=== PATIENT | female | born 1995 | race Caucasian/White ===

== ENCOUNTER 2016-11-11 23:27 | Observation (INO) | payer OTHER ==
[2016-11-12 00:49] LABS: AMORPHOUS SEDIMENT,URINE TRACE /HPF; APPEARANCE,URINE CLEAR; BILIRUBIN,URINE NEGATIVE (NEGATIVE); GLUCOSE, URINE NEGATIVE (NEGATIVE); KETONES,URINE NEGATIVE (NEGATIVE); LEUKOCYTE ESTERASE,URINE TRACE (NEGATIVE); NITRITE,URINE NEGATIVE (NEGATIVE); PROTEIN,URINE NEGATIVE (NEGATIVE); UROBILINOGEN,URINE NEGATIVE mg/dL (<2.0)
[2016-11-12 01:14] LABS: ABSOLUTE EOSINOPHILS # (AUTO) 0.1 10^3/uL (0.0-0.6); ABSOLUTE LYMPHOCYTES (AUTO) 1.9 10^3/uL (0.5-4.7); ABSOLUTE MONOCYTES (AUTO) 0.5 10^3/uL (0.1-1.4); BASOPHILS % (AUTO) 0.4 % (0-2); EOSINOPHILS % (AUTO) 1.6 % (0-6); HEMATOCRIT 35.2 % (36.0-47.0); HEMOGLOBIN 12.2 g/dL (12.0-15.5); HGB HCT DIFFERENCE 1.4; LYMPHOCYTES % (AUTO) 22.5 % (13-45); MEAN CORPUSCULAR HEMOGLOBIN 31.8 pg (27.0-33.4); MEAN CORPUSCULAR HGB CONC 34.7 g/dL (32.0-36.0); MEAN CORPUSCULAR VOLUME 92 fl (80-97); MONOCYTES % (AUTO) 6.2 % (3-13); RED BLOOD COUNT 3.85 10^6/uL (3.72-5.28); RED CELL DISTRIBUTION WIDTH 12.6 % (11.5-14.0); SEGMENTED NEUTROPHILS % (AUTO) 69.3 % (42-78); WHITE BLOOD COUNT 8.6 10^3/uL (4.0-10.5)
[2016-11-12 01:53] LABS: ALANINE AMINOTRANSFERASE 35 U/L (5-35); ALBUMIN 3.9 g/dL (3.7-5.6); ALKALINE PHOSPHATASE 81 U/L (50-135); ANION GAP 12 (5-19); ASPARTATE AMINO TRANSFERASE 19 U/L (5-30); BILIRUBIN,DIRECT 0.3 mg/dL (0.0-0.4); BILIRUBIN,TOTAL 0.4 mg/dL (0.2-1.3); BLOOD UREA NITROGEN 10 mg/dL (7-20); CARBON DIOXIDE 24 mmol/L (22-30); CHLORIDE 107 mmol/L (98-107); CREATININE RESULT 0.59 mg/dL (0.52-1.25); GLUCOSE 110 mg/dL (75-110); LIPASE 44.7 U/L (23-300); POTASSIUM 4.4 mmol/L (3.6-5.0); SODIUM 143.1 mmol/L (137-145); TOTAL PROTEIN 7.1 g/dL (6.3-8.2)
[2016-11-12] MEDS ORDERED: ONDANSETRON HCL INJ/PF 4 MG/2 ML SDV IV ONE (02:58)
[2016-11-12] MEDS ORDERED: HYDROMORPHONE HCL INJ/PF 2 MG/ML AMPULE IV ONE (02:59)
--- NOTE | 2016-11-12 03:33 | ER Document Report ---
ED General - General Chief Complaint: Abdominal Pain Stated Complaint: LEFT FLANK PAIN Time seen by provider: 02:48 Mode of Arrival: Ambulatory Information source: Patient, Parent TRAVEL OUTSIDE OF THE [place] IN LAST 30 DAYS: No - HPI Notes: Patient presents that last week she had a small area of skin infection on the back of the left leg which improved after antibiotics. The patient denies any significant swelling otherwise to the leg. She states that 4 days ago she developed sudden left sided chest pain that was pleuritic and has intensified and worsened since that time. She feels somewhat short of breath but mainly describes a worsening pain through the left chest associated with taking a deep breath. The pain is somewhat worse when she lays down. She denies any trauma to the region. She does report some radiation of the pain to the left arm. Patient is on control pills, but does not smoke. No recent long distance travel. Patient denies any cough, constipation, diarrhea, dysuria, numbness, paresthesia. She has been taking ibuprofen regularly without significant improvement. Family history grandmother with DVTs. - Related Data Allergies/Adverse Reactions: No Known Allergies Allergy (Unverified 11/12/16 00:03) Home Medications: Current Home Medications Cephalexin Monohydrate [Cephalexin] 1 cap PO Q8H 11/12/16 [History] Desogestrel-Ethinyl Estradiol [Reclipsen 28 Day Tablet] 1 tab PO DAILY 11/12/16 [History] Past Medical History - General Information source: Patient, Parent - Social History Smoking Status: Never Smoker Cigarette use (# per day): No Chew tobacco use (# tins/day): No Smoking Education Provided: No Frequency of alcohol use: None Drug Abuse: None Lives with: Family Family History: Other - grandmother with DVT's Patient has suicidal ideation: No Patient has homicidal ideation: No Renal/ Medical History: Denies: Hx Peritoneal Dialysis - Immunizations Hx Diphtheria, Pertussis, Tetanus Vaccination: Yes Review of Systems - Review of Systems Notes: REVIEW OF SYSTEMS: CONSTITUTIONAL : Denies fever, chills, or sweats. EENT: Denies eye, ear, throat, or mouth pain or symptoms. Denies nasal or sinus congestion or discharge. Denies throat, tongue, or mouth swelling or difficulty swallowing. CARDIOVASCULAR: Denies palpitations or racing or irregular heart beat. Denies ankle edema. RESPIRATORY: Denies cough, cold, or chest congestion. Denies wheezing. GASTROINTESTINAL: Denies abdominal pain or distention. Denies nausea, vomiting , or diarrhea. Denies blood in vomitus, stools, or per rectum. Denies black, tarry stools. Denies constipation. GENITOURINARY: Denies difficulty urinating, painful urination, burning, frequency, blood in urine, or discharge. FEMALE GENITOURINARY: Denies vaginal bleeding, heavy or abnormal periods, irregular periods. Denies vaginal discharge or odor. MUSCULOSKELETAL: Denies neck pain or stiffness. Denies joint pain or swelling. SKIN: Left posterior skin cellulitis is improving. HEMATOLOGIC : Denies easy bruising or bleeding. LYMPHATIC: Denies swollen, enlarged glands. NEUROLOGICAL: Denies confusion or altered mental status. Denies passing out or loss of consciousness. Denies dizziness or lightheadedness. Denies headache. Denies weakness or paralysis or loss of use of either side. Denies problems with gait or speech. Denies sensory loss, numbness, or tingling. Denies seizures. PSYCHIATRIC: Denies anxiety or stress. Denies depression, suicidal ideation, or homicidal ideation. ALL OTHER SYSTEMS REVIEWED AND NEGATIVE. Dictation was performed using [employer] voice recognition software Physical Exam - Vital signs Vitals: Temp Pulse Resp BP Pulse Ox 97.7 F 98 H 18 137/80 H 100 11/12/16 00:04 11/12/16 00:04 11/12/16 00:04 11/12/16 00:04 11/12/16 00:04 - Notes Notes: PHYSICAL EXAMINATION: GENERAL: Well-appearing, well-nourished. Obvious discomfort noted. HEAD: Atraumatic, normocephalic. EYES: Pupils equal round and reactive to light, extraocular movements intact, conjunctiva are normal. ENT: Nares patent, oropharynx clear without exudates. Moist mucous membranes. NECK: Normal range of motion, supple without lymphadenopathy LUNGS: Breath sounds clear to auscultation bilaterally and equal. No wheezes rales or rhonchi. Patient has some pain to the left lateral rib cage region. There is no bony deformity or crepitance. HEART: Tachycardic rate 110 and rhythm without murmurs, gallop or rub. ABDOMEN: Soft, nontender, nondistended abdomen. No guarding, no rebound. No masses appreciated. Female : deferred Musculoskeletal: Normal range of motion, no pitting or edema. No cyanosis. Negative Homans. No palpable cord. NEUROLOGICAL: Cranial nerves grossly intact. Normal speech, normal gait. Normal sensory, motor exams PSYCH: Normal mood, normal affect. SKIN: Warm, Dry, normal turgor, no rashes or lesions noted. Area of what appears to be a resolving cellulitis posterior left thigh proximal to the knee. Good range of motion to the extremity without any evidence for septic arthritis. Distally there are good pulses and sensation and capillary refill. There is no obvious abscess. Course - Re-evaluation Re-evalutation: 11/12/16 05:03 After Zofran and Dilaudid, the patient reported improvement in her pain. Oxygen saturations remained 98-100% on room air. CT scan showed left pulmonary infarct with segmental pulmonary emboli. Discussion was undertaken with the patient and her father and they were in agreement with admission for further evaluation and care. Patient was given Lovenox subcutaneous. Discussion was undertaken with Dr. Syed Mornoy who agreed to admit the patient for further management. No evidence for hypoxia. No evidence for cardiac ischemia or acute AR or . Question lower extremity DVT with recent resolving infection left lower extremity. No evidence for pericarditis or pericardial effusion. Critical care time not counting billable procedures is 44 minutes. - Vital Signs Vital signs: Temp Pulse Resp BP Pulse Ox 97.7 F 98 H 11 L 131/78 H 91 L 11/12/16 00:04 11/12/16 00:04 11/12/16 04:48 11/12/16 04:48 11/12/16 04:48 - Laboratory Result Diagrams: 11/12/16 01:04 11/12/16 01:04 Laboratory results interpreted by me: 11/12/16 11/12/16 00:15 01:04 Hct 35.2 L Ur Leukocyte Esterase TRACE H - Diagnostic Test Radiology reviewed: Image reviewed, Reports reviewed - EKG Interpretation by Wy EKG shows normal: Sinus rhythm Rate: Tachycardia Additional EKG results interpreted by me: 11/12/16 03:33 EKG as interpreted by ky showed sinus tachycardia rate of 107. There is no gross evidence for acute AR or ischemia identified. There is no evidence for pericarditis. There is no old EKG available for comparison. Discharge - Discharge Clinical Impression: Chest pain Qualifiers: Chest pain type: chest pain on breathing Qualified Code(s): R07.1 - Chest pain on breathing Pulmonary embolism Qualifiers: Pulmonary embolism type: other Chronicity: acute Acute cor pulmonale presence: without acute cor pulmonale Qualified Code(s): I26.99 - Other pulmonary embolism without acute cor pulmonale Condition: Stable Disposition: ADMITTED INPATIENT Unit Admitted: Telemetry
[2016-11-12 04:41] LABS: PROTHROMBIN TIME 13.7 SEC (11.4-15.4)
[2016-11-12] MEDS ORDERED: ONDANSETRON HCL INJ/PF 4 MG/2 ML SDV IV PRN (05:16)
[2016-11-12] MEDS: ENOXAPARIN SODIUM INJ 100 MG/1 ML DISP.SYRIN SUBCUT SCH ×2 (05:30→16:08)
[2016-11-12] MEDS ORDERED: NORMAL SALINE 1000 ML 1,000 ML IV SCH (05:30)
--- NOTE | 2016-11-12 05:55 | PDOC H&P ---
History of Present Illness Patient complains of: Chest pain History of Present Illness: EUGENIA GARCIA is a 20 year old female without significant past medical history who 5 days ago noted to have an area of folliculitis on the left leg behind the knee, she was treated with Keflex and had significant recovery denying lower extremity edema. 3 days ago she had severe left-sided pleuritic chest pain exacerbated by deep breathing prompting him to seek evaluation in the emergency room where she's found to have tachycardia and tachypnea with bilateral pulmonary emboli with small pulmonary infarct on chest CTA. She denies previous episode home medications include oral control and when necessary ibuprofen. Grandmother has history of DVTs on chronic Coumadin therapy Past Medical History Medical History: None Social History Information Source: Patient Lives with: Family Smoking Status: Never Smoker Drugs: None Hx Prescription Drug Abuse: No - Advance Directive Resuscitation Status: Full Code Family History Family History: Other - grandmother with DVT's Parental Family History Reviewed: Yes Children Family History Reviewed: Yes Sibling(s) Family History Reviewed.: Yes Medication/Allergy Home Medications: Cephalexin Monohydrate [Cephalexin] 1 cap PO Q8H 11/12/16 Desogestrel-Ethinyl Estradiol [Reclipsen 28 Day Tablet] 1 tab PO DAILY 11/12/16 Allergies/Adverse Reactions: No Known Allergies Allergy (Unverified 11/12/16 00:03) Review of Systems Constitutional: ABSENT: chills, fever(s), headache(s), weight gain, weight loss Eyes: ABSENT: visual disturbances Ears: ABSENT: hearing changes Cardiovascular: ABSENT: chest pain, dyspnea on exertion, edema, orthropnea, palpitations Respiratory: ABSENT: cough, hemoptysis Gastrointestinal: ABSENT: abdominal pain, constipation, diarrhea, hematemesis, hematochezia, nausea, vomiting Genitourinary: ABSENT: dysuria, hematuria Musculoskeletal: ABSENT: joint swelling Integumentary: ABSENT: rash, wounds Neurological: ABSENT: abnormal gait, abnormal speech, confusion, dizziness, focal weakness, syncope Psychiatric: ABSENT: anxiety, depression, homidical ideation, suicidal ideation Endocrine: ABSENT: cold intolerance, heat intolerance, polydipsia, polyuria Hematologic/Lymphatic: ABSENT: easy bleeding, easy bruising Physical Exam Vital Signs: Temp Pulse Resp BP Pulse Ox 97.7 F 98 H 11 L 131/78 H 91 L 11/12/16 00:04 11/12/16 00:04 11/12/16 04:48 11/12/16 04:48 11/12/16 04:48 Intake & Output 11/10/16 11/11/16 11/12/16 11:59 11:59 11:59 Weight 89.2 kg General appearance: PRESENT: cooperative, mild distress, obese Head exam: PRESENT: atraumatic, normocephalic Eye exam: PRESENT: conjunctiva pink, EOMI, PERRLA. ABSENT: scleral icterus Ear exam: PRESENT: normal external ear exam Mouth exam: PRESENT: moist, tongue midline Neck exam: ABSENT: carotid bruit, JVD, lymphadenopathy, thyromegaly Respiratory exam: PRESENT: clear to auscultation mayda, symmetrical, tachypnea, other - Shallow breathing. ABSENT: accessory muscle use, chest wall tenderness , crackles Cardiovascular exam: PRESENT: RRR. ABSENT: diastolic murmur, rubs, systolic murmur Pulses: PRESENT: normal dorsalis pedis pul GI/Abdominal exam: PRESENT: normal bowel sounds, soft. ABSENT: distended, guarding, mass, organolmegaly, rebound, tenderness Rectal exam: PRESENT: deferred Extremities exam: PRESENT: full ROM. ABSENT: calf tenderness, clubbing, pedal edema Neurological exam: PRESENT: alert, awake, oriented to person, oriented to place , oriented to time, oriented to situation, CN II-XII grossly intact. ABSENT: motor sensory deficit Psychiatric exam: PRESENT: appropriate affect, normal mood. ABSENT: homicidal ideation, suicidal ideation Skin exam: PRESENT: dry, intact, warm. ABSENT: cyanosis, rash Results Laboratory Results: 11/12/16 01:04 11/12/16 01:04 11/12/16 11/12/16 11/12/16 00:15 01:04 01:04 WBC 8.6 RBC 3.85 Hgb 12.2 Hct 35.2 L MCV 92 MCH 31.8 MCHC 34.7 RDW 12.6 Plt Count 183 Seg Neutrophils % 69.3 Lymphocytes % 22.5 Monocytes % 6.2 Eosinophils % 1.6 Basophils % 0.4 Absolute Neutrophils 6.0 Absolute Lymphocytes 1.9 Absolute Monocytes 0.5 Absolute Eosinophils 0.1 Absolute Basophils 0.0 Sodium 143.1 Potassium 4.4 Chloride 107 Carbon Dioxide 24 Anion Gap 12 BUN 10 Creatinine 0.59 Est GFR ( Amer) > 60 Est GFR (Non-Af Amer) > 60 Glucose 110 Calcium 9.0 Total Bilirubin 0.4 AST 19 ALT 35 Alkaline Phosphatase 81 Total Protein 7.1 Albumin 3.9 Lipase 44.7 Urine Color STRAW Urine Appearance CLEAR Urine pH 7.0 Ur Specific Gilliam 1.010 Urine Protein NEGATIVE Urine Glucose (UA) NEGATIVE Urine Ketones NEGATIVE Urine Blood NEGATIVE Urine Nitrite NEGATIVE Ur Leukocyte Esterase TRACE H Urine WBC (Auto) 1 11/12/16 01:04 Troponin I < 0.012 Impressions: Chest/Abdomen CTA 11/12/16 02:55 IMPRESSION: Acute bilateral pulmonary emboli. Pleural-based airspace opacities at the lingula and left lower lobe, probably representing pulmonary infarcts. Small left pleural effusion. Subsegmental atelectasis in the right lower lobe. Assessment & Plan - Diagnosis (1) Pulmonary embolism Qualifiers: Pulmonary embolism type: other Chronicity: acute Acute cor pulmonale presence: without acute cor pulmonale Qualified Code(s): I26.99 - Other pulmonary embolism without acute cor pulmonale Is this a current diagnosis for this admission?: YesPlan: Multiple risk factors for DVT I will evaluate for left lower extremity DVT with venous Doppler, symptomatic management, full dose Lovenox subcutaneous twice a day 7 days, discharge planning consultation for medication assistance follow- up a.m. CBC and chemistry (2) Chest pain Qualifiers: Chest pain type: chest pain on breathing Qualified Code(s): R07.1 - Chest pain on breathing - Time Time Spent: 30 to 50 Minutes - Inpatient Certification Medical Necessity: Need Close Monitoring Due to Risk of Patient Decompensation
[2016-11-12] MEDS: ACETAMINOPHEN 325 MG TABLET PO PRN ×2 (06:30→20:15)
--- NOTE | 2016-11-12 08:32 | PDOC CONSULTATION ---
Consultation Consult Date: 11/12/16 Attending physician:: MISSY KILGORE Consult reason:: Pulmonary embolism History of Present Illness Admission Date/PCP: 11/12/16 05:16 Patient complains of: Shortness breath, chest pain found to have PE History of Present Illness: 20-year-old female with no previous medical history who presents with acute onset of shortness of breath and chest pain, had CT of the chest done in the ED , was found to have bilateral pulmonary embolism. Of note, she had left lower extremity redness behind the thigh, there was what looked like a folliculitis or a bug bite, the leg was swollen for 3-4 days prior to seeing a physician in urgent care, she was started on Keflex on Saturday, but already by then she was having shortness of breath and chest pain which worsened and then she presented to the ED. The redness and the leg is gone down, looks much better than what it did before. Of note she has never had any thrombotic history, however she does have a maternal aunt who had DVT post gastric bypass, as well as maternal grandmother who had pulmonary embolism while she had pneumonia, both are on lifelong anticoagulation. Past Medical History Medical History: None Past Surgical History Past Surgical History: Reports: None Social History Lives with: Family Smoking Status: Never Smoker Drugs: None Hx Prescription Drug Abuse: No - Advance Directive Resuscitation Status: Full Code Family History Family History: Other - grandmother with DVT's Parental Family History Reviewed: Yes Children Family History Reviewed: Yes Sibling(s) Family History Reviewed.: Yes Medication/Allergy Home Medications: Cephalexin Monohydrate [Cephalexin] 1 cap PO Q8H 11/12/16 Desogestrel-Ethinyl Estradiol [Reclipsen 28 Day Tablet] 1 tab PO DAILY 11/12/16 Allergies/Adverse Reactions: No Known Allergies Allergy (Unverified 11/12/16 00:03) Review of Systems Constitutional: PRESENT: fatigue Cardiovascular: PRESENT: chest pain, dyspnea on exertion Gastrointestinal: ABSENT: abdominal pain, constipation, diarrhea, hematemesis, hematochezia, nausea, vomiting Neurological: ABSENT: abnormal gait, abnormal speech, confusion, dizziness, focal weakness, syncope Endocrine: ABSENT: cold intolerance, heat intolerance, polydipsia, polyuria Physical Exam Vital Signs: Temp Pulse Resp BP Pulse Ox 97.8 F 106 H 22 122/76 100 11/12/16 07:03 04/03/17 08:14 11/12/16 08:14 11/12/16 08:14 11/12/16 08:14 General appearance: PRESENT: no acute distress, well-developed, well-nourished Head exam: PRESENT: atraumatic, normocephalic Eye exam: PRESENT: conjunctiva pink, EOMI, PERRLA. ABSENT: scleral icterus Ear exam: PRESENT: normal external ear exam Mouth exam: PRESENT: moist, tongue midline Neck exam: ABSENT: carotid bruit, JVD, lymphadenopathy, thyromegaly Respiratory exam: PRESENT: clear to auscultation mayda. ABSENT: rales, rhonchi, wheezes Cardiovascular exam: PRESENT: RRR. ABSENT: diastolic murmur, rubs, systolic murmur Pulses: PRESENT: normal dorsalis pedis pul Vascular exam: PRESENT: normal capillary refill GI/Abdominal exam: PRESENT: normal bowel sounds, soft. ABSENT: distended, guarding, mass, organolmegaly, rebound, tenderness Rectal exam: PRESENT: deferred Extremities exam: PRESENT: full ROM. ABSENT: calf tenderness, clubbing, pedal edema Neurological exam: PRESENT: alert, awake, oriented to person, oriented to place , oriented to time, oriented to situation, CN II-XII grossly intact. ABSENT: motor sensory deficit Psychiatric exam: PRESENT: appropriate affect, normal mood. ABSENT: homicidal ideation, suicidal ideation Skin exam: PRESENT: dry, intact, warm. ABSENT: cyanosis, rash Results Impressions: Chest/Abdomen CTA 11/12/16 02:55 IMPRESSION: Acute bilateral pulmonary emboli. Pleural-based airspace opacities at the lingula and left lower lobe, probably representing pulmonary infarcts. Small left pleural effusion. Subsegmental atelectasis in the right lower lobe. Status: Image reviewed by me Assessment & Plan - Diagnosis (1) Pulmonary embolism Qualifiers: Pulmonary embolism type: other Chronicity: acute Acute cor pulmonale presence: without acute cor pulmonale Qualified Code(s): I26.99 - Other pulmonary embolism without acute cor pulmonale Is this a current diagnosis for this admission?: YesPlan: Patient with acute pulmonary embolism, she was on oral contraceptive, also had a lower extremity cellulitis, together may be enough for a provoking event, however for most this would not cause issues because she does not smoke. But she does have significant family history of thrombotic events. She may have a familial thrombophilia. We will test for that as an outpatient. For now continue on Lovenox for another 24 hours, we will then transition to Xarelto. - Time Time Spent: 50 to 70 Minutes Critical Time spent with patient: 25-34 minutes - Inpatient Certification Based on my medical assessment, after consideration of the patient's comorbidities, presenting symptoms, or acuity I expect that the services needed warrant INPATIENT care.: Yes I certify that my determination is in accordance with my understanding of Medicare's requirements for reasonable and necessary INPATIENT services [42 CFR 412.3e].: Yes Medical Necessity: Need For Continuous Telemetry Monitoring, Risk of Complication if Not Cared For in Hospital
[2016-11-12] MEDS: DOCUSATE SODIUM 100 MG CAPSULE PO SCH ×2 (10:38→17:01)
--- NOTE | 2016-11-12 12:51 | EKG REPORT ---
SEVERITY:- OTHERWISE NORMAL ECG - SINUS TACHYCARDIA : Confirmed by: Dahlia Alejandro MD 12-Nov-2016 12:51:06
--- NOTE | 2016-11-12 13:08 | PDOC PROGRESS REPORT ---
Subjective Progress Note for:: 11/12/16 Subjective:: The patient was seen earlier today on rounds. Mother is present at the bedside I given the patient's care. The patient denies any nausea, vomiting, diarrhea, shortness of breath, dizziness, chest pain, heart palpitations, fevers, or chills. The patient has remained afebrile. Blood pressures have been in a good range. When prompted the patient voices no other concerns at this time. Review of systems: The rest of the review of systems is negative. Physical Exam Vital Signs: Temp Pulse Resp BP Pulse Ox 98.0 F 95 H 16 123/74 99 11/12/16 09:28 11/12/16 09:28 11/12/16 09:28 11/12/16 09:28 11/12/16 09:28 Intake & Output 11/10/16 11/11/16 11/12/16 23:59 23:59 23:59 Weight 89.2 kg General appearance: PRESENT: no acute distress, cooperative, well-developed, well-nourished Head exam: PRESENT: atraumatic, normocephalic Eye exam: PRESENT: conjunctiva pink, EOMI, PERRLA. ABSENT: scleral icterus Ear exam: PRESENT: normal external ear exam Mouth exam: PRESENT: moist, tongue midline Neck exam: ABSENT: carotid bruit, JVD, lymphadenopathy, thyromegaly Respiratory exam: PRESENT: clear to auscultation mayda, symmetrical, unlabored. ABSENT: rales, rhonchi, tachypnea, wheezes Cardiovascular exam: PRESENT: RRR. ABSENT: diastolic murmur, rubs, systolic murmur Pulses: PRESENT: normal dorsalis pedis pul Vascular exam: PRESENT: normal capillary refill GI/Abdominal exam: PRESENT: normal bowel sounds, soft. ABSENT: distended, guarding, mass, organolmegaly, rebound, tenderness Rectal exam: PRESENT: deferred Extremities exam: PRESENT: full ROM. ABSENT: calf tenderness, clubbing, pedal edema Neurological exam: PRESENT: alert, awake, oriented to person, oriented to place , oriented to time, oriented to situation, CN II-XII grossly intact. ABSENT: motor sensory deficit Psychiatric exam: PRESENT: appropriate affect, normal mood. ABSENT: homicidal ideation, suicidal ideation Skin exam: PRESENT: dry, intact, warm. ABSENT: cyanosis, rash Results Laboratory Results: Labs- Last Values WBC 8.6 10^3/uL (4.0-10.5) 11/12/16 01:04 RBC 3.85 10^6/uL (3.72-5.28) 11/12/16 01:04 Hgb 12.2 g/dL (12.0-15.5) 11/12/16 01:04 Hct 35.2 % (36.0-47.0) L 11/12/16 01:04 MCV 92 fl (80-97) 11/12/16 01:04 MCH 31.8 pg (27.0-33.4) 11/12/16 01:04 MCHC 34.7 g/dL (32.0-36.0) 11/12/16 01:04 RDW 12.6 % (11.5-14.0) 11/12/16 01:04 Plt Count 183 10^3/uL (150-450) 11/12/16 01:04 Seg Neutrophils % 69.3 % (42-78) 11/12/16 01:04 Lymphocytes % 22.5 % (13-45) 11/12/16 01:04 Monocytes % 6.2 % (3-13) 11/12/16 01:04 Eosinophils % 1.6 % (0-6) 11/12/16 01:04 Basophils % 0.4 % (0-2) 11/12/16 01:04 Absolute Neutrophils 6.0 10^3/uL (1.7-8.2) 11/12/16 01:04 Absolute Lymphocytes 1.9 10^3/uL (0.5-4.7) 11/12/16 01:04 Absolute Monocytes 0.5 10^3/uL (0.1-1.4) 11/12/16 01:04 Absolute Eosinophils 0.1 10^3/uL (0.0-0.6) 11/12/16 01:04 Absolute Basophils 0.0 10^3/uL (0.0-0.2) 11/12/16 01:04 PT 13.7 SEC (11.4-15.4) 11/12/16 01:04 INR 1.02 11/12/16 01:04 Sodium 143.1 mmol/L (137-145) 11/12/16 01:04 Potassium 4.4 mmol/L (3.6-5.0) 11/12/16 01:04 Chloride 107 mmol/L (98-107) 11/12/16 01:04 Carbon Dioxide 24 mmol/L (22-30) 11/12/16 01:04 Anion Gap 12 (5-19) 11/12/16 01:04 BUN 10 mg/dL (7-20) 11/12/16 01:04 Creatinine 0.59 mg/dL (0.52-1.25) 11/12/16 01:04 Est GFR ( Amer) > 60 (>60) 11/12/16 01:04 Est GFR (Non-Af Amer) > 60 (>60) 11/12/16 01:04 Glucose 110 mg/dL (75-110) 11/12/16 01:04 Calcium 9.0 mg/dL (8.4-10.2) 11/12/16 01:04 Total Bilirubin 0.4 mg/dL (0.2-1.3) 11/12/16 01:04 Direct Bilirubin 0.3 mg/dL (0.0-0.4) 11/12/16 01:04 Indirect Bilirubin Not Reportable 11/12/16 01:04 Neonat Total Bilirubin Not Reportable 11/12/16 01:04 AST 19 U/L (5-30) 11/12/16 01:04 ALT 35 U/L (5-35) 11/12/16 01:04 Alkaline Phosphatase 81 U/L (50-135) 11/12/16 01:04 Troponin I < 0.012 ng/mL 11/12/16 01:04 Total Protein 7.1 g/dL (6.3-8.2) 11/12/16 01:04 Albumin 3.9 g/dL (3.7-5.6) 11/12/16 01:04 Lipase 44.7 U/L (23-300) 11/12/16 01:04 Urine Color STRAW 11/12/16 00:15 Urine Appearance CLEAR 11/12/16 00:15 Urine pH 7.0 (5.0-9.0) 11/12/16 00:15 Ur Specific Jerome 1.010 11/12/16 00:15 Urine Protein NEGATIVE mg/dL (NEGATIVE) 11/12/16 00:15 Urine Glucose (UA) NEGATIVE mg/dL (NEGATIVE) 11/12/16 00:15 Urine Ketones NEGATIVE mg/dL (NEGATIVE) 11/12/16 00:15 Urine Blood NEGATIVE (NEGATIVE) 11/12/16 00:15 Urine Nitrite NEGATIVE (NEGATIVE) 11/12/16 00:15 Urine Bilirubin NEGATIVE (NEGATIVE) 11/12/16 00:15 Urine Urobilinogen NEGATIVE mg/dL (<2.0) 11/12/16 00:15 Ur Leukocyte Esterase TRACE (NEGATIVE) H 11/12/16 00:15 Urine WBC (Auto) 1 /HPF 11/12/16 00:15 Urine Bacteria (Auto) TRACE /HPF 11/12/16 00:15 Squamous Epi Cells Auto 2 /HPF 11/12/16 00:15 Amorphous Sediment Auto TRACE /HPF 11/12/16 00:15 Urine Ascorbic Acid NEGATIVE (NEGATIVE) 11/12/16 00:15 Urine HCG, Qual NEGATIVE (NEGATIVE) 11/12/16 00:15 Impressions: Chest/Abdomen CTA 11/12/16 02:55 IMPRESSION: Acute bilateral pulmonary emboli. Pleural-based airspace opacities at the lingula and left lower lobe, probably representing pulmonary infarcts. Small left pleural effusion. Subsegmental atelectasis in the right lower lobe. Venous Doppler Study 11/12/16 08:24 IMPRESSION: NO EVIDENCE DVT OR SVT IN EITHER LEG. Assessment & Plan - Diagnosis (1) Pulmonary embolism Qualifiers: Pulmonary embolism type: other Chronicity: acute Acute cor pulmonale presence: without acute cor pulmonale Qualified Code(s): I26.99 - Other pulmonary embolism without acute cor pulmonale Is this a current diagnosis for this admission?: YesPlan: Will continue Lovenox coverage for now. The patient has been seen by hematology. Recommendations been made to start Xarelto tomorrow. Patient's symptoms overall. Improved. (2) Chest pain Qualifiers: Chest pain type: chest pain on breathing Qualified Code(s): R07.1 - Chest pain on breathing Is this a current diagnosis for this admission?: YesPlan: Resolved - Time Time Spent with patient: on this visit including assessment, plan, physical examination, family meeting, and specialty collaboration, and patient education is 35 minutes. Time Spent with patient: 35 or more minutes Medications reviewed and adjusted accordingly: Yes Anticipated discharge: Home Within: within 24 hours, within 48 hours
[2016-11-13] MEDS: ACETAMINOPHEN 325 MG TABLET PO PRN (01:59)
[2016-11-13] MEDS: ENOXAPARIN SODIUM INJ 100 MG/1 ML DISP.SYRIN SUBCUT SCH (05:10)
[2016-11-13 05:49] LABS: ANION GAP 13 (5-19); BLOOD UREA NITROGEN 7 mg/dL (7-20); CALCIUM 8.8 mg/dL (8.4-10.2); CARBON DIOXIDE 23 mmol/L (22-30); CHLORIDE 106 mmol/L (98-107); CREATININE RESULT 0.57 mg/dL (0.52-1.25); GLUCOSE 86 mg/dL (75-110); POTASSIUM 4.1 mmol/L (3.6-5.0); SODIUM 141.9 mmol/L (137-145)
--- NOTE | 2016-11-13 08:30 | PDOC PROGRESS REPORT ---
Subjective Progress Note for:: 11/13/16 Subjective:: Doing better today still with considerable pain Physical Exam Vital Signs: Temp Pulse Resp BP Pulse Ox 97.4 F 90 24 130/79 H 98 11/13/16 05:19 11/13/16 05:19 11/13/16 05:19 11/13/16 05:19 11/13/16 05:19 Intake & Output 11/12/16 11/13/16 11/14/16 06:59 06:59 06:59 Intake Total 2703 Output Total 950 Balance 1753 Weight 88 kg General appearance: PRESENT: no acute distress, well-developed, well-nourished Head exam: PRESENT: atraumatic, normocephalic Eye exam: PRESENT: conjunctiva pink, EOMI, PERRLA. ABSENT: scleral icterus Ear exam: PRESENT: normal external ear exam Mouth exam: PRESENT: moist, tongue midline Neck exam: ABSENT: carotid bruit, JVD, lymphadenopathy, thyromegaly Respiratory exam: PRESENT: clear to auscultation mayda. ABSENT: rales, rhonchi, wheezes Cardiovascular exam: PRESENT: RRR. ABSENT: diastolic murmur, rubs, systolic murmur Pulses: PRESENT: normal dorsalis pedis pul Vascular exam: PRESENT: normal capillary refill GI/Abdominal exam: PRESENT: normal bowel sounds, soft. ABSENT: distended, guarding, mass, organolmegaly, rebound, tenderness Rectal exam: PRESENT: deferred Extremities exam: PRESENT: full ROM. ABSENT: calf tenderness, clubbing, pedal edema Neurological exam: PRESENT: alert, awake, oriented to person, oriented to place , oriented to time, oriented to situation, CN II-XII grossly intact. ABSENT: motor sensory deficit Psychiatric exam: PRESENT: appropriate affect, normal mood. ABSENT: homicidal ideation, suicidal ideation Skin exam: PRESENT: dry, intact, warm. ABSENT: cyanosis, rash Results Laboratory Results: 11/13/16 05:12 11/13/16 05:12 Sodium 141.9 Potassium 4.1 Chloride 106 Carbon Dioxide 23 Anion Gap 13 BUN 7 Creatinine 0.57 Est GFR ( Amer) > 60 Est GFR (Non-Af Amer) > 60 Glucose 86 Calcium 8.8 Impressions: Chest/Abdomen CTA 11/12/16 02:55 IMPRESSION: Acute bilateral pulmonary emboli. Pleural-based airspace opacities at the lingula and left lower lobe, probably representing pulmonary infarcts. Small left pleural effusion. Subsegmental atelectasis in the right lower lobe. Venous Doppler Study 11/12/16 08:24 IMPRESSION: NO EVIDENCE DVT OR SVT IN EITHER LEG. Assessment & Plan - Diagnosis (1) Pulmonary embolism Qualifiers: Pulmonary embolism type: other Chronicity: acute Acute cor pulmonale presence: without acute cor pulmonale Qualified Code(s): I26.99 - Other pulmonary embolism without acute cor pulmonale Is this a current diagnosis for this admission?: YesPlan: Idiopathic at present, she will receive her Lovenox this morning and then probable discharge home and afternoon on Xarelto, 15 mg twice a day for 21 days then 20 mg daily. She'll also require some oral pain medication, also notes for work and school. She will see us back in 1-2 weeks post discharge. She'll remain off OCP until we decide to readd. - Time Time Spent with patient: 15-24 minutes Critical Time spent with patient: 15-24 minutes Anticipated discharge: Home Within: within 24 hours
[2016-11-13] MEDS: DOCUSATE SODIUM 100 MG CAPSULE PO SCH (10:05)
[2016-11-13 11:17] VITALS: BP 123/74
--- NOTE | 2016-11-13 17:33 | PDOC DISCHARGE SUMMARY ---
General - Admit/Disc Date/PCP Admission Date/Primary Care Provider: 11/12/16 05:16 Consulting oncologist: Megan Discharge Date: 11/13/16 - Discharge Diagnosis (1) Pulmonary embolism Is this a current diagnosis for this admission?: Yes (2) Chest pain Is this a current diagnosis for this admission?: Yes - Additional Information Resuscitation Status: Full Code Discharge Diet: Regular Discharge Activity: Activity As Tolerated Home Medications: Rivaroxaban [Xarelto 15 mg Tablet] 15 mg PO BID #42 tablet 11/13/16 Tramadol HCl [Ultram 50 mg Tablet] 50 mg PO Q4HP PRN #10 tab 11/13/16 History of Present Illness Patient complains of: Chest pain History of Present Illness: EUGENIA GARCIA is a 20 year old female without significant past medical history who 5 days ago noted to have an area of folliculitis on the left leg behind the knee, she was treated with Keflex and had significant recovery denying lower extremity edema. 3 days ago she had severe left-sided pleuritic chest pain exacerbated by deep breathing prompting him to seek evaluation in the emergency room where she's found to have tachycardia and tachypnea with bilateral pulmonary emboli with small pulmonary infarct on chest CTA. She denies previous episode home medications include oral control and when necessary ibuprofen. Grandmother has history of DVTs on chronic Coumadin therapy. Hospital Course Hospital Course: The patient was admitted to continuous telemetry unit. The patient's diagnostic imaging was consistent with bilateral PEs. The patient was covered with Lovenox. Dr. Guzman with hematology was consult did recommendations were made to hold contraception and transition to Xarelto. I called the patient Xarelto prescriptions in myself to ensure that her insurance cover these. The patient registered for patient co-pay assistance. The patient is able to ambulate without issue and is ready for discharge Physical Exam Vital Signs: Temp Pulse Resp BP Pulse Ox 98.7 F 89 18 123/74 98 11/13/16 11:14 11/13/16 11:14 11/13/16 11:14 11/13/16 11:14 11/13/16 11:14 Intake & Output 11/11/16 11/12/16 11/13/16 23:59 23:59 23:59 Intake Total 1500 1203 Output Total 950 Balance 1500 253 Weight 89.2 kg 88 kg General appearance: PRESENT: no acute distress, cooperative, well-developed, well-nourished Head exam: PRESENT: atraumatic, normocephalic Eye exam: PRESENT: conjunctiva pink, EOMI, PERRLA. ABSENT: scleral icterus Ear exam: PRESENT: normal external ear exam Mouth exam: PRESENT: moist, tongue midline Neck exam: ABSENT: carotid bruit, JVD, lymphadenopathy, thyromegaly Respiratory exam: PRESENT: clear to auscultation mayda. ABSENT: rales, rhonchi, wheezes Cardiovascular exam: PRESENT: RRR. ABSENT: diastolic murmur, rubs, systolic murmur Pulses: PRESENT: normal dorsalis pedis pul Vascular exam: PRESENT: normal capillary refill GI/Abdominal exam: PRESENT: normal bowel sounds, soft. ABSENT: distended, guarding, mass, organolmegaly, rebound, tenderness Rectal exam: PRESENT: deferred Extremities exam: PRESENT: full ROM. ABSENT: calf tenderness, clubbing, pedal edema Neurological exam: PRESENT: alert, awake, oriented to person, oriented to place , oriented to time, oriented to situation, CN II-XII grossly intact. ABSENT: motor sensory deficit Psychiatric exam: PRESENT: appropriate affect, normal mood. ABSENT: homicidal ideation, suicidal ideation Skin exam: PRESENT: dry, intact, warm. ABSENT: cyanosis, rash Results Laboratory Results: Labs- Last Values WBC 8.6 10^3/uL (4.0-10.5) 11/12/16 01:04 RBC 3.85 10^6/uL (3.72-5.28) 11/12/16 01:04 Hgb 12.2 g/dL (12.0-15.5) 11/12/16 01:04 Hct 35.2 % (36.0-47.0) L 11/12/16 01:04 MCV 92 fl (80-97) 11/12/16 01:04 MCH 31.8 pg (27.0-33.4) 11/12/16 01:04 MCHC 34.7 g/dL (32.0-36.0) 11/12/16 01:04 RDW 12.6 % (11.5-14.0) 11/12/16 01:04 Plt Count 183 10^3/uL (150-450) 11/12/16 01:04 Seg Neutrophils % 69.3 % (42-78) 11/12/16 01:04 Lymphocytes % 22.5 % (13-45) 11/12/16 01:04 Monocytes % 6.2 % (3-13) 11/12/16 01:04 Eosinophils % 1.6 % (0-6) 11/12/16 01:04 Basophils % 0.4 % (0-2) 11/12/16 01:04 Absolute Neutrophils 6.0 10^3/uL (1.7-8.2) 11/12/16 01:04 Absolute Lymphocytes 1.9 10^3/uL (0.5-4.7) 11/12/16 01:04 Absolute Monocytes 0.5 10^3/uL (0.1-1.4) 11/12/16 01:04 Absolute Eosinophils 0.1 10^3/uL (0.0-0.6) 11/12/16 01:04 Absolute Basophils 0.0 10^3/uL (0.0-0.2) 11/12/16 01:04 PT 13.7 SEC (11.4-15.4) 11/12/16 01:04 INR 1.02 11/12/16 01:04 Sodium 141.9 mmol/L (137-145) 11/13/16 05:12 Potassium 4.1 mmol/L (3.6-5.0) 11/13/16 05:12 Chloride 106 mmol/L (98-107) 11/13/16 05:12 Carbon Dioxide 23 mmol/L (22-30) 11/13/16 05:12 Anion Gap 13 (5-19) 11/13/16 05:12 BUN 7 mg/dL (7-20) 11/13/16 05:12 Creatinine 0.57 mg/dL (0.52-1.25) 11/13/16 05:12 Est GFR ( Amer) > 60 (>60) 11/13/16 05:12 Est GFR (Non-Af Amer) > 60 (>60) 11/13/16 05:12 Glucose 86 mg/dL (75-110) 11/13/16 05:12 Calcium 8.8 mg/dL (8.4-10.2) 11/13/16 05:12 Total Bilirubin 0.4 mg/dL (0.2-1.3) 11/12/16 01:04 Direct Bilirubin 0.3 mg/dL (0.0-0.4) 11/12/16 01:04 Indirect Bilirubin Not Reportable 11/12/16 01:04 Neonat Total Bilirubin Not Reportable 11/12/16 01:04 AST 19 U/L (5-30) 11/12/16 01:04 ALT 35 U/L (5-35) 11/12/16 01:04 Alkaline Phosphatase 81 U/L (50-135) 11/12/16 01:04 Troponin I < 0.012 ng/mL 11/12/16 01:04 Total Protein 7.1 g/dL (6.3-8.2) 11/12/16 01:04 Albumin 3.9 g/dL (3.7-5.6) 11/12/16 01:04 Lipase 44.7 U/L (23-300) 11/12/16 01:04 Urine Color STRAW 11/12/16 00:15 Urine Appearance CLEAR 11/12/16 00:15 Urine pH 7.0 (5.0-9.0) 11/12/16 00:15 Ur Specific [place] 1.010 11/12/16 00:15 Urine Protein NEGATIVE mg/dL (NEGATIVE) 11/12/16 00:15 Urine Glucose (UA) NEGATIVE mg/dL (NEGATIVE) 11/12/16 00:15 Urine Ketones NEGATIVE mg/dL (NEGATIVE) 11/12/16 00:15 Urine Blood NEGATIVE (NEGATIVE) 11/12/16 00:15 Urine Nitrite NEGATIVE (NEGATIVE) 11/12/16 00:15 Urine Bilirubin NEGATIVE (NEGATIVE) 11/12/16 00:15 Urine Urobilinogen NEGATIVE mg/dL (<2.0) 11/12/16 00:15 Ur Leukocyte Esterase TRACE (NEGATIVE) H 11/12/16 00:15 Urine WBC (Auto) 1 /HPF 11/12/16 00:15 Urine Bacteria (Auto) TRACE /HPF 11/12/16 00:15 Squamous Epi Cells Auto 2 /HPF 11/12/16 00:15 Amorphous Sediment Auto TRACE /HPF 11/12/16 00:15 Urine Ascorbic Acid NEGATIVE (NEGATIVE) 11/12/16 00:15 Urine HCG, Qual NEGATIVE (NEGATIVE) 11/12/16 00:15 Impressions: Chest/Abdomen CTA 11/12/16 02:55 IMPRESSION: Acute bilateral pulmonary emboli. Pleural-based airspace opacities at the lingula and left lower lobe, probably representing pulmonary infarcts. Small left pleural effusion. Subsegmental atelectasis in the right lower lobe. Venous Doppler Study 11/12/16 08:24 IMPRESSION: NO EVIDENCE DVT OR SVT IN EITHER LEG. Qualifiers PATEINT BEING DISCHARGED WITH ANY OF THE FOLLOWING DIAGNOSIS?: No Plan Discharge Plan: The patient is to follow with Dr. Guzman within one week for hospital follow- up. Time Spent: Less than 30 Minutes
== END 2016-11-13 12:43 | disposition home or self-care (01) ==
LOC: ER 23:27 → EH 11-12 05:16 → INTOOBSV 11-12 05:16 → 3S 11-12 09:22
PROVIDERS: ADMIT Internal Medicine; ATTEND Internal Medicine
PROC: 3E033GC Introduction of Other Therapeutic Substance into Peripheral Vein, Percutaneous Approach (ICD-10-PCS; principal; 2016-11-11)
PROC: 3E033GC Introduction of Other Therapeutic Substance into Peripheral Vein, Percutaneous Approach (ICD-10-PCS; 2016-11-11)
DX: I26.99 Other pulmonary embolism without acute cor pulmonale (principal); R07.1 Chest pain on breathing
CPT/HCPCS: 93005; 99285; 96374; 96375; 36415 ×2; 83690; 85025; 85610; 81025; 80048; 80053; 81001; 84484; 93970; 71275; 94799; 93010; G0378 ×3; J1170; J2405; J7030; J1650 ×2

== ENCOUNTER → 2016-11-22 | Outpatient (CLI) | payer OTHER ==
[2016-11-22 17:46] LABS: ABSOLUTE EOSINOPHILS # (AUTO) 0.3 10^3/uL (0.0-0.6); ABSOLUTE LYMPHOCYTES (AUTO) 2.8 10^3/uL (0.5-4.7); ABSOLUTE MONOCYTES (AUTO) 0.3 10^3/uL (0.1-1.4); ABSOLUTE NEUT (AUTO) 2.3 10^3/uL (1.7-8.2); BASOPHILS % (AUTO) 0.5 % (0-2); EOSINOPHILS % (AUTO) 5.4 % (0-6); HEMATOCRIT 30.2 % (36.0-47.0); HEMOGLOBIN 10.6 g/dL (12.0-15.5); HGB HCT DIFFERENCE 1.6; LYMPHOCYTES % (AUTO) 49.2 % (13-45); MEAN CORPUSCULAR HEMOGLOBIN 31.7 pg (27.0-33.4); MEAN CORPUSCULAR HGB CONC 35.1 g/dL (32.0-36.0); MEAN CORPUSCULAR VOLUME 90 fl (80-97); MONOCYTES % (AUTO) 4.5 % (3-13); RED BLOOD COUNT 3.34 10^6/uL (3.72-5.28); RED CELL DISTRIBUTION WIDTH 12.8 % (11.5-14.0); SEGMENTED NEUTROPHILS % (AUTO) 40.4 % (42-78); WHITE BLOOD COUNT 5.6 10^3/uL (4.0-10.5)
[2016-11-22 18:16] LABS: ALANINE AMINOTRANSFERASE 44 U/L (5-35); ALBUMIN 4.1 g/dL (3.7-5.6); ALKALINE PHOSPHATASE 77 U/L (50-135); ANION GAP 12 (5-19); ASPARTATE AMINO TRANSFERASE 20 U/L (5-30); BILIRUBIN,DIRECT 0.1 mg/dL (0.0-0.4); BILIRUBIN,TOTAL 0.3 mg/dL (0.2-1.3); BLOOD UREA NITROGEN 11 mg/dL (7-20); CALCIUM 9.4 mg/dL (8.4-10.2); CARBON DIOXIDE 24 mmol/L (22-30); CHLORIDE 107 mmol/L (98-107); CREATININE RESULT 0.66 mg/dL (0.52-1.25); GLUCOSE 91 mg/dL (75-110); POTASSIUM 4.3 mmol/L (3.6-5.0); SODIUM 142.9 mmol/L (137-145)
[2016-11-22 19:22] LABS: FOLATE 9.38 ng/mL (>2.76)
[2016-11-26 09:37] LABS: HEXAGONAL PHASE PHOSPHOLIPID 15 sec (0-11); PTT-LA 52.2 sec (0.0-43.6); PTT-LA MIX 44.6 sec (0.0-40.6); THROMBIN TIME 16.8 sec (0.0-20.9)
[2016-11-26 10:46] LABS: DILUTE RUSSELL VIPOR VENOM 120.7 sec (0.0-44.0); DRVVT MIX 73.6 sec (0.0-44.0); LUPUS PANEL INTERPRETATION Comment: (.)
[2016-11-27 07:09] LABS: BETA-2 GLYCOPROTEIN I IGA AB <9 (0-25)
== END ==
LOC: OD 16:25
PROVIDERS: ATTEND Internal Medicine
DX: I26.99 Other pulmonary embolism without acute cor pulmonale (principal); D68.59 Other primary thrombophilia; D50.0 Iron deficiency anemia secondary to blood loss (chronic)
CPT/HCPCS: 36415; 80053; 81240; 81241; 82607; 82728; 82746; 83520; 83540; 83550; 85025; 86146; 86147; 86225; 86235